=== PATIENT | male | born 1980 | race Two or more races ===

== ENCOUNTER 2019-12-11 10:29 | Emergency (ER) | payer BC ==
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
[2019-12-11] MEDS ORDERED: Ketorolac 30 MG/ML SDV IM ONE (11:15)
--- NOTE | 2019-12-11 11:19 | CR ---
PROCEDURE INFORMATION: Exam: XR Left Knee Exam date and time: 12/11/2019 10:58 AM Age: 39 years old Clinical indication: Pain; Prior surgery; Surgery date: 6+ months; Surgery type: Acl surgery left knee; Additional info: S/P acl surgery. [place] a popped a cannot ambulate. TECHNIQUE: Imaging protocol: XR Left knee. Views: 3 views. COMPARISON: No relevant prior studies available. FINDINGS: Bones/joints: There is a vertically oriented linear defect involving posterior and far medial edge of the tibia. This is best appreciated on the lateral view. The tibial plateau is involved. No joint effusion. Soft tissues: Surgical change indicating prior anterior cruciate ligament surgery. IMPRESSION: Nondisplaced posterior tibia fracture which is believed to be medial.
== END 2019-12-11 12:23 | disposition home or self-care (01) ==
LOC: DL.ED 10:29
DX: S82.102A Unspecified fracture of upper end of left tibia, initial encounter for closed fracture (principal); W17.89XA Other fall from one level to another, initial encounter
CPT/HCPCS: 73562; 96372; 99283; J1885